=== PATIENT | male | born 1975 | race Two or more races ===

== ENCOUNTER 2021-06-28 22:23 | Emergency (ER) | payer MEDICAID, OTHER ==
[~2021-06-28] VITALS: Ht 175.3 cm; Wt 90.7 kg
[2021-06-28 22:25] VITALS: BP 150/101
== END 2021-06-29 03:20 | disposition left against medical advice (07) ==
LOC: EDBD 22:23 → ER 22:27
DX: M54.2 Cervicalgia (principal); Z53.21 Procedure and treatment not carried out due to patient leaving prior to being seen by health care provider; V43.52XA Car driver injured in collision with other type car in traffic accident, initial encounter; Y93.89 Activity, other specified; Y92.89 Other specified places as the place of occurrence of the external cause; Y99.8 Other external cause status